=== PATIENT | male | born 1965 | race Caucasian/White ===

== ENCOUNTER 2021-03-29 21:05 | Emergency (ER) | payer MEDICARE, MEDICAID ==
[~2021-03-29] VITALS: Ht 183.5 cm; Wt 85.0 kg
[2021-03-29 22:30] VITALS: BP 134/99
== END 2021-03-30 01:07 | disposition home or self-care (01) ==
LOC: EMS 21:07
DX: S50.11XA Contusion of right forearm, initial encounter (principal); F15.10 Other stimulant abuse, uncomplicated; W05.0XXA Fall from non-moving wheelchair, initial encounter; Y93.89 Activity, other specified; Y92.89 Other specified places as the place of occurrence of the external cause; Y99.8 Other external cause status
CPT/HCPCS: 99283

== ENCOUNTER 2022-08-07 05:26 | Emergency (ER) | payer MEDICARE, MEDICAID ==
[~2022-08-07] VITALS: Ht 180.3 cm; Wt 81.8 kg
[2022-08-07] MEDS ORDERED: AMLO5TAB66 PO (05:54)
[2022-08-07] MEDS ORDERED: ACETAMINOPHEN 500 MG TABLET PO ONE (06:15)
[2022-08-07 10:00] VITALS: BP 147/73
== END 2022-08-07 11:00 | disposition home or self-care (01) ==
LOC: EMS 05:27
DX: S40.011A Contusion of right shoulder, initial encounter (principal); W05.0XXA Fall from non-moving wheelchair, initial encounter; Y93.89 Activity, other specified; Y92.89 Other specified places as the place of occurrence of the external cause; Y99.8 Other external cause status
CPT/HCPCS: 99283

== ENCOUNTER 2023-02-21 07:29 | Emergency (ER) | payer MEDICARE, MEDICAID ==
[~2023-02-21] VITALS: Ht 177.8 cm; Wt 81.8 kg
[~2023-02-21 07:29] MED LIST: AMLO5TAB66 PO
[2023-02-21 07:36] VITALS: TEMP 98.4
[2023-02-21] MEDS ORDERED: SODIUM CHLORIDE 0.9% 1,000 ML IV ONE (12:00)
[2023-02-21] MEDS ORDERED: LIDO700A15 TP (15:40)
[2023-02-21] MEDS ORDERED: CYCL-448 PO (15:40)
[2023-02-21 15:47] VITALS: BP 141/88; PULSE 66; RESP 16
[2023-02-21] MEDS ORDERED: LIDOCAINE 5% TRANSDERMAL PATCH TD ONE (16:00)
== END 2023-02-21 16:08 | disposition home or self-care (01) ==
LOC: EMS 07:54
DX: M25.512 Pain in left shoulder (principal); M54.2 Cervicalgia
CPT/HCPCS: 72040; 99284; 73030-TC; Z7502; Z7610

== ENCOUNTER 2023-05-08 03:32 | Emergency (ER) | payer MEDICARE, MEDICAID ==
[~2023-05-08] VITALS: Ht 180.3 cm; Wt 87.0 kg
[~2023-05-08 03:32] MED LIST changes: +CYCL-448 PO; +LIDO700A15 TP
[2023-05-08 03:42] VITALS: TEMP 98.5
[2023-05-08 04:44] LABS: BASOPHILS % (AUTO) 0.8 % (0.0-2.0); EOSINOPHILS % (AUTO) 4.3 % (1.0-6.0); HEMATOCRIT 36.1 % (41-53); HEMOGLOBIN 11.8 g/dL (13.5-17.5); LYMPHOCYTES # (AUTO) 1.8 K/uL (1.0-4.8); LYMPHOCYTES % (AUTO) 20.2 % (22.0-44.0); MEAN CORPUSCULAR HEMOGLOBIN 26.7 pg (26.0-34.0); MEAN CORPUSCULAR HGB CONC 32.8 G/dL (31.0-37.0); MEAN CORPUSCULAR VOLUME 81 fL (80-100); MONOCYTES # (AUTO) 1.1 K/uL (0.1-1.0); MONOCYTES % (AUTO) 12.4 % (2.0-9.0); NEUTROPHILS # (AUTO) 5.5 K/uL (1.8-7.7); NEUTROPHILS % (AUTO) 62.3 % (40.0-70.0); PLATELET COUNT (AUTO) 403 K/uL (150-450); RED BLOOD CELL COUNT(AUTO) 4.44 MIL/uL (4.50-5.90); WHITE BLOOD COUNT (AUTO) 8.8 K/uL (4.5-11.0)
[2023-05-08 04:52] LABS: ANION GAP 6 mmol/L (8-16); CARBON DIOXIDE 28 mmol/L (22-29); CHLORIDE 103 mmol/L (98-107); CREATININE 0.84 mg/dL (0.60-1.30); GLOMERULAR FILTR. RATE CALC > 60 mL/min (>60); GLUCOSE,RANDOM 97 mg/dL (70-110); POTASSIUM 4.1 mmol/L (3.5-5.1); SODIUM SERUM 137 mmol/L (136-145); UREA NITROGEN, BLOOD 9 mg/dL (7-18)
[2023-05-08 04:58] LABS: ALANINE AMINOTRANSFERASE 19 U/L (12-78); ALBUMIN 3.1 g/dL (3.4-5.0); ALKALINE PHOSPHATASE 134 U/L (46-116); ASPARTATE AMINOTRANSFERASE 18 U/L (15-37); BILIRUBIN,TOTAL 0.2 mg/dL (0.1-1.0); LIPASE 35 U/L (16-77); TOTAL PROTEIN, SERUM 8.1 g/dL (6.4-8.2)
[2023-05-08 06:03] VITALS: BP 143/78; PULSE 57; RESP 17
[2023-05-08 06:23] LABS: APPEARANCE,URINE CLEAR (CLEAR); BILIRUBIN,URINE NEGATIVE (NEGATIVE); COLOR,URINE LIGHT YELLOW (YELLOW); GLUCOSE, URINE (UA) NEGATIVE (NEGATIVE); KETONES,URINE NEGATIVE (NEGATIVE); LEUKOCYTE ESTERASE ,URINE LARGE (NEGATIVE); NITRATE,URINE POSITIVE (NEGATIVE); OCCULT BLOOD,URINE NEGATIVE (NEGATIVE); PROTEIN,URINE NEGATIVE (NEGATIVE); SPECIFIC GRAVITIY, URINE 1.007 (1.003-1.030); UROBILINOGEN,URINE <=1.0 mg/dL (<=1.0)
[2023-05-08] MEDS ORDERED: CEPH-558 PO (06:29)
[2023-05-08 06:44] LABS: BACTERIA,URINE Many /HPF (None Seen); RBC,URINE None Seen /HPF (0-2)
[2023-05-08] MEDS ORDERED: CEPHALEXIN MONOHYDRATE 500 MG CAPSULE PO ONE ×2 (07:00→07:30)
== END 2023-05-08 11:03 | disposition home or self-care (01) ==
LOC: EMS 03:34
DX: N39.0 Urinary tract infection, site not specified (principal); Z86.69 Personal history of other diseases of the nervous system and sense organs
CPT/HCPCS: 74022; 80053; 81001; 83690; 85025; 87086; 87186; 99284